=== PATIENT | male | born 1970 | race Caucasian/White ===

== ENCOUNTER 2024-12-26 22:41 | Emergency (ER) | payer OTHER ==
[2024-12-26] MEDS ORDERED: Lidocaine 1% (PF) 30 ML VIAL ONE (23:20)
[2024-12-27] MEDS ORDERED: Bacitracin 1 PK ONE (00:44)
== END 2024-12-27 00:59 ==
LOC: MADERS 22:41
DX: S01.412A Laceration without foreign body of left cheek and temporomandibular area, initial encounter (principal); S80.922A Unspecified superficial injury of left lower leg, initial encounter; S80.921A Unspecified superficial injury of right lower leg, initial encounter; S20.219A Contusion of unspecified front wall of thorax, initial encounter; F17.210 Nicotine dependence, cigarettes, uncomplicated; Y04.0XXA Assault by unarmed brawl or fight, initial encounter
CPT/HCPCS: 12013; 71045